=== PATIENT | male | born 1955 | race Caucasian/White ===

== ENCOUNTER 2020-02-10 17:24 | Emergency (ER) | payer MEDICARE ==
[~2020-02-10] VITALS: Ht 165.1 cm; Wt 68.0 kg
[2020-02-10 17:55] VITALS: BP 158/93
[2020-02-10] MEDS ORDERED: HYDROCODONE/ACETAMINOPHEN 5/325MG TABLET PO ONE (18:30)
[2020-02-10] MEDS ORDERED: KETOROLAC 60MG/2ML VIAL IM ONE (18:30)
[2020-02-10] MEDS ORDERED: METHOCARBAMOL 750MG TABLET PO SCH (18:30)
[2020-02-10 18:53] LABS: CHLORIDE 102 mEq/L (98-107)
[2020-02-10 19:05] LABS: BASOPHILS % 0.4 % (0.0-2.0); EOSINOPHILS % 0.5 % (0.0-5.0); HEMATOCRIT. 45.8 % (42.0-52.0); HEMOGLOBIN. 16.3 g/dL (14.0-18.0); LYMPHOCYTES % 7.5 % (20.0-50.0); MEAN CORPUSCULAR HEMOGLOBIN 32.9 pg (28.0-32.0); MEAN CORPUSCULAR VOLUME 92.1 fL (80.0-94.0); MEAN PLATELET VOLUME 9.1 fl (7.4-10.4); MONOCYTES % 8.7 % (2.0-8.0); NEUTROPHILS % 82.9 % (40.0-76.0); PLATELET 218 x1000/uL (130-400); RED BLOOD CELL COUNT 4.97 mill/uL (4.7-6.1); RED CELL DISTRIBUTION WIDTH 12.6 % (11.6-14.6)
== END 2020-02-10 20:30 | disposition home or self-care (01) ==
LOC: ER 17:24
DX: M71.9 Bursopathy, unspecified (principal); E11.9 Type 2 diabetes mellitus without complications; I10 Essential (primary) hypertension
CPT/HCPCS: 36415; 73080; 80048; 83690; 84484; 85025; 93005; 96372; 99285; J1885

== ENCOUNTER 2020-02-17 10:59 | Emergency (ER) | payer MEDICARE ==
[~2020-02-17] VITALS: Ht 167.6 cm; Wt 68.0 kg
[2020-02-17] MEDS ORDERED: KETOROLAC 30MG/ML VIAL IM ONE (12:30)
[2020-02-17 12:56] VITALS: BP 154/86
== END 2020-02-17 12:58 | disposition home or self-care (01) ==
LOC: ER 10:59
DX: M54.5 Low back pain (principal); E11.9 Type 2 diabetes mellitus without complications; I10 Essential (primary) hypertension; Z76.0 Encounter for issue of repeat prescription
CPT/HCPCS: 96372; 99283; J1885